=== PATIENT | female | born 1975 | race Caucasian/White ===

== ENCOUNTER 2022-10-05 13:04 | Emergency (ER) | payer MEDICARE | END 2022-10-05 15:50 | disposition home or self-care (01) | LOC: MW.ED 13:04 | DX: L72.8 Other follicular cysts of the skin and subcutaneous tissue (principal); Z88.8 Allergy status to other drugs, medicaments and biological substances | CPT/HCPCS: 76881-26-RT; 76881-RT; 93971-26-RT; 93971-RT; 99283 ==